=== PATIENT | female | born 2000 | race Caucasian/White ===

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

== ENCOUNTER → 2021-02-14 09:44 | Outpatient (BNVA) | payer MEDICAID, SELFPAY | PROVIDERS: Visit Provider Psychiatry & Neurology Psychiatry | DX: F84.0 Autistic disorder (principal) | CPT/HCPCS: 99214 ==

== ENCOUNTER → 2021-07-08 08:48 | Outpatient (BNVA) | payer MEDICAID, SELFPAY | PROVIDERS: Visit Provider Psychiatry & Neurology Psychiatry | DX: F84.0 Autistic disorder (principal); F32.A Depression, unspecified | CPT/HCPCS: 99214 ==

== ENCOUNTER → 2021-10-02 15:42 | Outpatient (BNVA) | payer MEDICAID, SELFPAY | PROVIDERS: PCP Family Medicine; Visit Provider Family Medicine | DX: E78.5 Hyperlipidemia, unspecified (principal); H61.23 Impacted cerumen, bilateral; J30.2 Other seasonal allergic rhinitis; Z30.09 Encounter for other general counseling and advice on contraception | CPT/HCPCS: 80053; 80061; 84443; 85025 ==

== ENCOUNTER → 2021-10-30 08:38 | Outpatient (BNVA) | payer MEDICAID, SELFPAY | PROVIDERS: PCP Family Medicine; Visit Provider Psychiatry & Neurology Psychiatry | DX: F84.0 Autistic disorder (principal); Z79.899 Other long term (current) drug therapy | CPT/HCPCS: 99214 ==

== ENCOUNTER → 2021-11-20 08:31 | Outpatient (BNVA) | payer MEDICAID, SELFPAY | PROVIDERS: PCP Family Medicine; Visit Provider Psychiatry & Neurology Psychiatry | DX: F84.0 Autistic disorder (principal); F32.A Depression, unspecified; I83.90 Asymptomatic varicose veins of unspecified lower extremity; I83.813 Varicose veins of bilateral lower extremities with pain | CPT/HCPCS: 99202; 99214 ==

== ENCOUNTER 2021-12-25 18:54 | Emergency (ER) | payer MEDICAID, SELFPAY ==
[2021-12-25 19:01] VITALS: BP 153/95; PULSE 108; RESP 18; TEMP 36.7; O2SAT 97; BMI 33.8
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
[2021-12-25] MEDS: ARIPiprazole 10 mg Tablet PO (21:28)
== END 2021-12-25 21:45 | disposition home or self-care (01) ==
PROVIDERS: Emergency Provider Emergency Medicine; PCP Family Medicine
DX: R45.6 Violent behavior (principal)
CPT/HCPCS: 99283; Q3014

== ENCOUNTER → 2021-12-30 16:24 | Outpatient (BNVA) | payer MEDICAID, SELFPAY | PROVIDERS: PCP Family Medicine; Visit Provider Psychiatry & Neurology Psychiatry | DX: F84.0 Autistic disorder (principal); F32.A Depression, unspecified | CPT/HCPCS: 99214 ==

== ENCOUNTER 2022-01-20 13:22 | Outpatient (CLI) | payer MEDICAID, SELFPAY ==
--- NOTE | 2022-01-20 13:30 | USCV_ITS ---
Basilio Patel Age: 21 Gender: F : 2000 Exam Date: 01/20/2022 13:42 Ordering Phys: Jon Fernandez MD (Andy) ([email or web address] – [place], [place]) Technologist: SHIRLENE Exam Location: [facility] [place] Indication: HISTORY: PROCEDURES: FINDINGS: The veins were found to be easily compressible with spontaneous blood flow. Non pulsatile flow pattern. The below-knee segment of the greater saphenous vein on both sides were found to be superficial. Significant venous reflux were noted throughout the greater saphenous vein segments on both sides CONCLUSIONS 1. Significant venous reflux of greater than 500 ms were noted throughout the greater saphenous vein segments on the right side, including the saphenofemoral junction but excluding the below-knee segment. The venous diameter was ranging anywhere from .35 to 0.54 cm. 2. On the left side, significant venous reflux of greater than 500 ms was noted throughout the greater saphenous vein segments including the saphenofemoral junction. The venous segments were measuring anywhere from 0.61 to 0.77 cm in diameter. The below-knee segment and the greater saphenous vein segment distal to the saphenofemoral junction were very superficial. Rest of the venous segments were greater than 1 cm deep 3. Significant venous reflux of greater than 500ms was noted at the proximal segment of the small saphenous vein on the right side. But this segment was a less than 1 cm deep from the surface. There was no significant venous reflux in the small saphenous vein segments on the left side. 4. For the venous dimensions and depth from the surface, please refer to the scanned report Dr Tonia Duffy MD [facility] (Electronically Signed) Final Date: 25 January 2022 09:46 S
== END 2022-01-20 13:23 | disposition home or self-care (01) ==
LOC: RAD 13:23
PROVIDERS: PCP Family Medicine; Visit Provider Thoracic Surgery (Cardiothoracic Vascular Surgery)
DX: I83.90 Asymptomatic varicose veins of unspecified lower extremity (principal); I87.2 Venous insufficiency (chronic) (peripheral)
CPT/HCPCS: 93970

== ENCOUNTER → 2022-09-14 10:52 | Outpatient (BNVA) | payer MEDICAID, SELFPAY | PROVIDERS: PCP Family Medicine; Visit Provider Family Medicine | DX: E78.5 Hyperlipidemia, unspecified (principal); J30.2 Other seasonal allergic rhinitis; Z30.09 Encounter for other general counseling and advice on contraception | CPT/HCPCS: 80053; 80061; 84443; 85025 ==

== ENCOUNTER 2022-10-08 20:51 | Emergency (ER) | payer MEDICAID, SELFPAY ==
[2022-10-08 20:53] VITALS: BP 123/84; PULSE 75; RESP 18; TEMP 36.9; O2SAT 99
--- NOTE | 2022-10-08 20:57 | ED.C_ITS ---
HPI - Psych General: Chief Complaint: Psychiatric Symptoms Stated Complaint: THROWING FIT Time Seen by Provider: 10/08/22 20:55 Source: patient and EMS Mode of arrival: EMS Limitations: no limitations History of Present Illness: 22-year-old female with intellectual delay along with alcohol syndrome mother called EMS tonight because she came angry and was throwing things and was angry patient here is calm cooperative she states she feels improved currently she has no suicidal or homicidal ideations. 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 Other care home (current) drug therapy Psychiatric care Social History Smoking and tobacco status: never smoked Alcohol intake: never Household members: family Marital status: Single Current occupational status: disabled Current gender identity: Female Physical Exam Const: COMMON NORMALS: no acute distress, patient oriented x3 and healthy appearing HENMT: COMMON NORMALS: normocephalic and atraumatic HEAD & SCALP: normocephalic and atraumatic Eye: COMMON NORMALS: Equal, round and reactive pupils present and EOMs intact bilaterally PUPIL: Yes Equal, round and reactive pupils present Neck/C-Spine: COMMON NORMALS: full ROM and supple Chest: COMMONS NORMALS: normal inspection of the chest and normal palpation of entire chest wall Resp: COMMON NORMALS: normal respiratory effort, No retractions, No use of accessory muscles and clear to auscultation bilaterally AUSCULTATION: clear to auscultation bilaterally Cardio: COMMON NORMALS: regular rate, regular rhythm and No murmurs present (Cardio) RATE: regular rate RHYTHM: regular rhythm GI: COMMON NORMALS: Normal to inspection, nondistended, normoactive bowel sounds present, Soft to palpation, non-tender and no masses PALPATION: Yes Soft to palpation Extremity: COMMON NORMALS: normal to inspection and full ROM Neuro: COMMON NORMALS: patient oriented x3, moves all extremities and no focal motor deficits Psych: COMMON NORMALS: mental status grossly normal, Normal thought process present and cooperative THOUGHT PROCESS: Normal thought process present Skin: COMMON NORMALS: no rashes or lesions noted and no wounds GENERAL SKIN EXAM: no rashes or lesions noted Course Vital Signs: Vital signs: Vital Signs Temperature 98.5 F 10/08/22 20:53 Pulse Rate 75 10/08/22 20:53 Respiratory Rate 18 10/08/22 20:53 Blood Pressure 123/84 10/08/22 20:53 Pulse Oximetry 99 10/08/22 20:53 MDM - Psych Medical Decision Making Patient presents here after an anger outburst at home. She has psychiatric history states she is to be on risperidone mother states that she has been increasingly irritable since they have stopped her Risperdal here she has been cool calm cooperative she is not suicidal not homicidal mother would like to take her home she did ask about place her back on Risperdal informed her that it is a call for her psychiatrist to make and call them in the morning she is return if worsening. Discharge Plan Discharge Patient Disposition: Home Clinical Impression: Outbursts of anger Condition: Stable Prescriptions: No Action omega-3 fatty acids 1,000 mg capsule 2,000 mg PO DAILY grape seed extract 50 mg tablet 150 mg PO DAILY Rx Instructions: give with food (meal/snack) cetirizine [Zyrtec] 10 mg tablet 10 mg PO DAILY Qty: 90 1RF norethindrone ac-eth estradiol 1-20 mg-mcg tablet 1 tab PO DAILY Qty: 84 5RF Chaste Tree 225 mg capsule PO fluticasone propionate 50 mcg/actuation spray,suspension See Rx Instructions .ROUTE .COMPLEX Qty: 64 0RF Dose Instruction: instill ONE SPRAY IN EACH NOSTRIL DAILY NEEDED FOR allergy symptoms Rx Instructions: instill ONE SPRAY IN EACH NOSTRIL DAILY NEEDED FOR allergy symptoms hydroxyzine HCl 25 mg tablet 25 mg PO BID PRN (Reason: anxiety or sleep) 30 Days Qty: 60 3RF montelukast 10 mg tablet See Rx Instructions .ROUTE .COMPLEX Qty: 90 0RF Dose Instruction: TAKE ONE TABLET BY MOUTH EVERY DAY Rx Instructions: TAKE ONE TABLET BY MOUTH EVERY DAY aripiprazole 20 mg tablet 10 mg PO BID 30 Days Qty: 30 0RF buspirone 30 mg tablet 30 mg PO BID 30 Days Qty: 60 0RF Discharge Orders: Discharge ED (Routine); Ordered 10/08/22 Ordered By: Holland Gallagher Referrals: Mariann Bearden MD [Primary Care Provider] - 1-3 days Discharge Diet: Advance as tolerated Discharge Activity: Resume usual activity Coding Level of Care Code ED [employer]als for Nahed Malhotra
[2022-10-08] MEDS: LORazepam 1 mg Tablet PO (21:25)
== END 2022-10-08 22:01 | disposition home or self-care (01) ==
PROVIDERS: Emergency Provider Emergency Medicine; PCP Family Medicine
DX: R45.4 Irritability and anger (principal); Q86.0 Fetal alcohol syndrome (dysmorphic)
CPT/HCPCS: 99283

== ENCOUNTER 2022-10-11 17:40 | Emergency (ER) | payer MEDICAID, SELFPAY ==
[2022-10-11 17:45] VITALS: BP 113/78; PULSE 85; RESP 16; TEMP 36.6; O2SAT 100
[2022-10-11 18:40] VITALS: BP 131/86; PULSE 82; RESP 16; O2SAT 99
--- NOTE | 2022-10-11 18:54 | CTR_ITS ---
PROCEDURE INFORMATION: Exam: CT Head Without Contrast Exam date and time: 10/11/2022 7:00 PM Age: 22 years old Clinical indication: Other: Seizure like activity TECHNIQUE: Imaging protocol: Computed tomography of the head without contrast. Radiation optimization: All CT scans at this facility use at least one of these dose optimization techniques: automated exposure control; mA and/or kV adjustment per patient size (includes targeted exams where dose is matched to clinical indication); or iterative reconstruction. REPORTING DATA: Count of CT and Cardiac NM exams in prior 12 months: This patient has received 0 known CTs and 0 known cardiac nuclear medicine studies in the 12 months prior to the current study. COMPARISON: No relevant prior studies available. RADIATION DOSE METRICS: Total DLP (mGy-cm): 989.49 FINDINGS: Brain: Normal. No hemorrhage. Unremarkable white matter. No mass effect. Cerebral ventricles: No ventriculomegaly. Paranasal sinuses: Visualized sinuses are unremarkable. No fluid levels. Mastoid air cells: Visualized mastoid air cells are well aerated. Bones/joints: Unremarkable. No acute fracture. Soft tissues: Unremarkable. CT/CT head wo con* [id number] IMPRESSION: No acute intracranial abnormality.
[2022-10-11 19:24] LABS: Hematocrit 38.8 % (37.0-47.0); Hemoglobin 12.9 g/dL (11.5-15.3); Mean Corpuscular HGB Conc 33.2 g/dL (30.0-36.0); Mean Corpuscular Hemoglobin 29.7 pg (28.0-34.0); Mean Corpuscular Volume 89.4 fl (81-99); Mean Platelet Volume 9.2 fL (7.4-10.4); Platelet Count 318 10^3/cmm (130-400); Red Blood Count 4.34 10^6/uL (4.1-5.3); Red Cell Distribution Width 13.2 % (12.1-15.1); White Blood Count 5.7 10^3/uL (4.0-10.0)
[2022-10-11 19:52] LABS: Alanine Aminotransferase 18 U/L (0-33); Albumin Level 4.2 g/dL (3.5-5.2); Alkaline Phosphatase 67 U/L (35-105); Anion Gap 13.1 (5-19); Aspartate Amino Transferase 17 U/L (0-32); Blood Urea Nitrogen 10 mg/dL (6-20); Calcium 8.9 mg/dL (8.5-10.5); Carbon Dioxide 24 mmol/L (22-29); Chloride 103 mmol/L (98-107); Globulin 3.2 g/dL (1.3-4.6); Glomerular Filtration Rate 90.5 mL/min (90-130); Glucose 84 mg/dL (65-115); Magnesium 1.7 mg/dL (1.7-2.3); Osmolality Calculated 280 mOsm/kg (285-295); Potassium 4.1 mmol/L (3.5-5.1); Prolactin 12.75 ng/mL (4.8-23.3); Sodium 136 mmol/L (136-145); Total Bilirubin 0.3 mg/dL (0.15-1.2); Total Protein 7.4 g/dL (6.6-8.7)
--- NOTE | 2022-10-11 19:53 | W.ED.NEUROSD ---
HPI - Neuro Symptoms/Deficit General: Chief Complaint: Neuro Symptoms/Deficit Stated Complaint: possible seizure Time Seen by Provider: 10/11/22 18:44 History of Present Illness: Patient presents to the ER with complaints of headache, pain behind her eyes, eyes rolling in the back of her head, patient states this happened twice within the last hour. Patient states she is 100% back to normal currently. Patient did not lose consciousness and stayed coherent through the entire process. Onset (ago): hour(s) History of same: No Severity: moderate On Anticoagulants: No Associated symptoms: Reports no associated symptoms; Deny chest pain, headache(s), nausea or vomiting Review of Systems General: Reports: 10 or more systems reviewed and unremarkable except in HPI and below Const: Denies: fever(s) or chills Eyes: Denies: change in vision ENMT: Denies: throat pain or odynophagia Card: Denies: chest pain, palpitations or irregular heart rhythm Resp: Denies: dyspnea, productive cough or non-productive cough GI: Denies: abdominal pain, nausea or vomiting : Denies: flank pain or dysuria Musc: Denies: neck pain or back pain Skin/Breast: Denies: rash or pruritus Neuro: Denies: headache(s), numbness in extremities or weakness in extremities Psych: Denies: anxiety or depression PFSH ED PFSH: Medical History Depression alcohol syndrome Other nursing home (current) drug therapy 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 Psychiatric care Social History Smoking and tobacco status: never smoked Alcohol intake: never Household members: family Marital status: Single Current occupational status: disabled Current gender identity: Female Physical Exam Const: COMMON NORMALS: no acute distress, average body habitus, patient oriented x3, no limitations, healthy appearing, alert and well nourished HENMT: COMMON NORMALS: normocephalic, atraumatic, hearing grossly normal bilaterally, external ears normal, Normal external nose present and moist oral mucous membranes HEAD & SCALP: normocephalic and atraumatic NOSE: Normal external nose present EXTERNAL EAR: Yes external ears normal Eye: COMMON NORMALS: Equal, round and reactive pupils present, EOMs intact bilaterally, conjunctivae normal and no scleral icterus CONJUNCTIVA: Yes conjunctivae normal PUPIL: Yes Equal, round and reactive pupils present Neck/C-Spine: COMMON NORMALS: full ROM, no lymphadenopathy, supple, no meningeal signs, no JVD, Thyroid normal and No carotid bruits THYROID: Thyroid normal Lymph: LYMPHATIC: no lymphadenopathy noted Chest: COMMONS NORMALS: normal inspection of the chest and normal palpation of entire chest wall Resp: COMMON NORMALS: normal respiratory effort, No retractions, No use of accessory muscles and clear to auscultation bilaterally AUSCULTATION: clear to auscultation bilaterally Cardio: COMMON NORMALS: no JVD, regular rate, regular rhythm, S1 normal heart sound present, S2 normal heart sound present, No gallops present (Cardio), No clicks present (Cardio), No murmurs present (Cardio) and No rub (Cardio) RATE: regular rate RHYTHM: regular rhythm HEART SOUNDS: S1 normal heart sound present and S2 normal heart sound present GI: COMMON NORMALS: Normal to inspection, nondistended, normoactive bowel sounds present, Soft to palpation, non-tender, No hepatosplenomegaly present and no masses PALPATION: Yes Soft to palpation and Yes No hepatosplenomegaly present : COMMON NORMALS: Yes no CVA tenderness BLADDER/KIDNEY EXAM: Yes no CVA tenderness Back/Pelvis: COMMON NORMALS: no CVA tenderness and thoracic and lumbar spine normal to inspection Extremity: COMMON NORMALS: normal to inspection Neuro: COMMON NORMALS: patient oriented x3, CN's II-XII intact bilaterally, moves all extremities, no focal motor deficits and no sensory deficits noted SENSORIUM/ORIENTATION: Yes alert MENINGEAL SIGNS: Yes no meningeal signs Psych: COMMON NORMALS: mental status grossly normal, Normal thought process present, cooperative, normal affect, speech normal and activity/motor behavior normal SPEECH: Yes normal speech THOUGHT PROCESS: Normal thought process present Course Vital Signs: Vital signs: Vital Signs Temperature 97.8 F 10/11/22 17:45 Pulse Rate 82 10/11/22 18:40 Respiratory Rate 16 10/11/22 18:40 Blood Pressure 131/86 10/11/22 18:40 Pulse Oximetry 99 10/11/22 18:40 Oxygen Delivery Me thod 10/11/22 18:40 MDM - Neuro Symptoms/Deficit Medical Decision Making Patient presents to the ER with headache and pain behind her eyes. Patient states her eyes did roll back in her head. Patient states that she did not lose consciousness during this episode and has had this happen twice in the last hour. All patient symptoms have resolved except headache upon arrival to the ER. Physical exam was performed as well as review of lab work and CT which are essentially benign. Due to physical exam and findings of lab and CT being benign patient will be discharged home. Differential Diagnosis Unlikely carpal tunnel syndrome, convulsions, delirium, subarachnoid hemorrhage, peripheral neuropathy, cerebrovascular accident, multiple sclerosis or transient cerebral ischemia Lab Data 10/11/22 19:05 10/11/22 19:[address] 10/11/22 18:54 IMPRESSION: No acute intracranial abnormality. Laboratory Results WBC 5.7 10^3/uL (4.0-10.0) 10/11/22 19:05 RBC 4.34 10^6/uL (4.1-5.3) 10/11/22 19:05 Hgb 12.9 g/dL (11.5-15.3) 10/11/22 19:05 Hct 38.8 % (37.0-47.0) 10/11/22 19:05 MCV 89.4 fl (81-99) 10/11/22 19:05 MCH 29.7 pg (28.0-34.0) 10/11/22 19:05 MCHC 33.2 g/dL (30.0-36.0) 10/11/22 19:05 RDW 13.2 % (12.1-15.1) 10/11/22 19:05 Plt Count 318 10^3/cmm (130-400) 10/11/22 19:05 MPV 9.2 fL (7.4-10.4) 10/11/22 19:05 Lymph % (Auto) Not Reportable 10/11/22 19:05 [place] % (Auto) Not Reportable 10/11/22 19:05 Lymph # (Auto) Not Reportable 10/11/22 19:05 [place] # (Auto) Not Reportable 10/11/22 19:05 Total Counted 100 (0-100) 10/11/22 19:05 Atypical Lymphs % 3.0 % (0-5) 10/11/22 19:05 Absolute Neutrophils 2.3 10^3/cmm (1.4-6.5) 10/11/22 19:05 Segmented Neutrophils 40 % 10/11/22 19:05 Abs Segm Neuts (Man) 2.3 10/cmm (1.6-7.1) 10/11/22 19:05 Band Neutrophils 0.0 % 10/11/22 19:05 Abs Band Neuts (Man) 0.0 10^3/cmm (0.0-1.2) 10/11/22 19:05 Absolute Lymphocytes 2.6 10^3/cmm (1.2-3.4) 10/11/22 19:05 Lymphocytes (Manual) 42 % 10/11/22 19:05 Monocytes (Manual) 14.0 % 10/11/22 19:05 Absolute Monocytes 0.8 10^3/cmm (0.1-0.6) H 10/11/22 19:05 Eosinophils (Manual) 1 % 10/11/22 19:05 Absolute Eosinophils 0.0 10^3/cmm (0.0-0.7) 10/11/22 19:05 Basophils (Manual) 0.0 % 10/11/22 19:05 Absolute Basophils 0.0 10^3/cmm (0.0-0.2) 10/11/22 19:05 Toxic Granulation 2+ H 10/11/22 19:05 Platelet Estimate Normal (Normal) 10/11/22 19:05 Tear Drop Cells 1+ 10/11/22 19:05 Sodium 136 mmol/L (136-145) 10/11/22 19:05 Potassium 4.1 mmol/L (3.5-5.1) 10/11/22 19:05 Chloride 103 mmol/L (98-107) 10/11/22 19:05 Carbon Dioxide 24 mmol/L (22-29) 10/11/22 19:05 Anion Gap 13.1 (5-19) 10/11/22 19:05 BUN 10 mg/dL (6-20) 10/11/22 19:05 Creatinine 0.8 mg/dL (0.5-0.9) 10/11/22 19:05 GFR Calculation 90.5 mL/min (90-130) 10/11/22 19:05 Glucose 84 mg/dL (65-115) 10/11/22 19:05 Calculated Osmolality 280 mOsm/kg (285-295) L 10/11/22 19:05 Calcium 8.9 mg/dL (8.5-10.5) 10/11/22 19:05 Magnesium 1.7 mg/dL (1.7-2.3) 10/11/22 19:05 Total Bilirubin 0.3 mg/dL (0.15-1.2) 10/11/22 19:05 AST 17 U/L (0-32) 10/11/22 19:05 ALT 18 U/L (0-33) 10/11/22 19:05 Alkaline Phosphatase 67 U/L (35-105) 10/11/22 19:05 Total Protein 7.4 g/dL (6.6-8.7) 10/11/22 19:05 Albumin 4.2 g/dL (3.5-5.2) 10/11/22 19:05 Globulin 3.2 g/dL (1.3-4.6) 10/11/22 19:05 Prolactin 12.75 ng/mL (4.8-23.3) 10/11/22 19:05 Urine Color Yellow (Yellow) 10/11/22 19:09 Urine Appearance Clear (CLEAR) 10/11/22 19:09 Urine pH 5 (5-7) 10/11/22 19:09 Ur Specific [place] 1.025 (1.005-1.030) 10/11/22 19:09 Urine Protein Neg (Negative) 10/11/22 19:09 Urine Glucose (UA) Norm (Normal) 10/11/22 19:09 Urine Ketones Negative (Negative) 10/11/22 19: Urine Blood Neg (Negative) 10/11/22 19:09 Urine Nitrate Negative (Negative) 10/11/22 19:09 Urine Bilirubin Neg (Negative) 10/11/22 19:09 Urine Urobilinogen Norm mg/dL (Negative) 10/11/22 19:09 Ur Leukocyte Esterase Trace (Negative) H 10/11/22 19:09 Urine RBC None /hpf (0-2) 10/11/22 19:09 Urine WBC 0-4 /hpf (0-5) H 10/11/22 19:09 Ur Squamous Epith Cells 10-15 /hpf (0-5) H 10/11/22 19:09 Amorphous Sediment Not Reportable 10/11/22 19:09 Urine Bacteria 2+ /hpf (NONE) H 10/11/22 19:09 Urine Mucus 1+ /hpf 10/11/22 19:09 Discharge Plan Discharge Patient Disposition: Home Clinical Impression: Headache Qualifiers: Headache type: unspecified Headache chronicity pattern: acute headache Intractability: not intractable Qualified Code(s): R51.9 - Headache, unspecified Condition: Stable Prescriptions: No Action omega-3 fatty acids 1,000 mg capsule 2,000 mg PO DAILY grape seed extract 50 mg tablet 150 mg PO DAILY Rx Instructions: give with food (meal/snack) cetirizine [Zyrtec] 10 mg tablet 10 mg PO DAILY Qty: 90 1RF norethindrone ac-eth estradiol 1-20 mg-mcg tablet 1 tab PO DAILY Qty: 84 5RF Chaste [place] 225 mg capsule PO fluticasone propionate 50 mcg/actuation spray,suspension See Rx Instructions .ROUTE .COMPLEX Qty: 64 0RF Dose Instruction: instill ONE SPRAY IN EACH NOSTRIL DAILY NEEDED FOR allergy symptoms Rx Instructions: instill ONE SPRAY IN EACH NOSTRIL DAILY NEEDED FOR allergy symptoms hydroxyzine HCl 25 mg tablet 25 mg PO BID PRN (Reason: anxiety or sleep) 30 Days Qty: 60 3RF montelukast 10 mg tablet See Rx Instructions .ROUTE .COMPLEX Qty: 90 0RF Dose Instruction: TAKE ONE TABLET BY MOUTH EVERY DAY Rx Instructions: TAKE ONE TABLET BY MOUTH EVERY DAY aripiprazole 20 mg tablet 10 mg PO BID 30 Days Qty: 30 0RF buspirone 30 mg tablet 30 mg PO BID 30 Days Qty: 60 0RF Discharge Orders: Discharge ED (Routine); Ordered 10/11/22 Ordered By: Chester Patiño Referrals: Mariann Bearden MD [Primary Care Provider] - 1 week Patient Instructions: Headache Coding Level of Care Code ED Assistant Professor Of Radiology for Nahed Malhotra
[2022-10-11 19:58] LABS: Urine Appearance Clear (CLEAR); Urine Color Yellow (Yellow)
[2022-10-11 19:59] LABS: Add Urine Microscopic? YES; Bilirubin Urine Neg (Negative); Blood Urine Neg (Negative); Glucose Urine UA Norm (Normal); Ketones Urine Negative (Negative); Leukocyte Esterase Urine Trace (Negative); Nitrate Urine Negative (Negative); Protein Urine Neg (Negative); Specific Gravity, Urine 1.025 (1.005-1.030); Urobilinogen Urine Norm (Negative); pH Urine 5 (5-7)
[2022-10-11 20:04] LABS: Bacteria Urine 2+ /hpf; WBC Urine 0-4 /hpf (0-5)
[2022-10-11 20:05] LABS: Mucus Urine 1+ /hpf
[2022-10-11 20:13] LABS: Absolute Segmented Neutrophil 2.3 10/cmm (1.6-7.1); Segmented Neutrophils 40 %; Total Cells Counted 100 (0-100)
[2022-10-11 20:14] LABS: Eosinophils 1 %; Lymphocytes 42 %; Lymphocytes Absolute 2.6 10^3/cmm (1.2-3.4); Monocytes Absolute 0.8 10^3/cmm (0.1-0.6)
[2022-10-11 20:15] LABS: Absolute Neutrophil 2.3 10^3/cmm (1.4-6.5); Platelet Estimate Normal (Normal); Tear Drop Cells 1+; Toxic Granulation 2+
[2022-10-11 20:52] VITALS: BP 119/77; O2SAT 96
== END 2022-10-11 21:06 | disposition home or self-care (01) ==
PROVIDERS: Emergency Provider Emergency Medicine; PCP Family Medicine
DX: R51.9 Headache, unspecified (principal); Q86.0 Fetal alcohol syndrome (dysmorphic)
CPT/HCPCS: 70450; 80053; 81001; 83735; 84146; 85007; 85025; 99284

== ENCOUNTER → 2022-10-29 14:40 | Outpatient (BNVA) | payer MEDICAID, SELFPAY | PROVIDERS: PCP Family Medicine; Visit Provider Nurse Practitioner Family | DX: J02.9 Acute pharyngitis, unspecified (principal); H10.9 Unspecified conjunctivitis; B96.89 Other specified bacterial agents as the cause of diseases classified elsewhere; J30.2 Other seasonal allergic rhinitis | CPT/HCPCS: 87071; 87880 ==

== ENCOUNTER 2023-01-17 20:43 | Emergency (ER) | payer MEDICAID, SELFPAY ==
[2023-01-17 20:44] VITALS: BP 120/73; PULSE 108; RESP 18; TEMP 36.9; O2SAT 97
[2023-01-17 21:33] LABS: Basophils % 0.2 %; Eosinophils # 0.2 10^3/uL (0.0-0.8); Eosinophils % 1.9 %; Hematocrit 41.5 % (37.0-47.0); Hemoglobin 14.1 g/dL (11.5-15.3); Lymphocytes # 3.1 10^3/uL (0.8-4.8); Lymphocytes % 36.2 %; Mean Corpuscular Hemoglobin 29.6 pg (28.0-34.0); Mean Platelet Volume 9.6 fL (7.4-10.4); Monocytes # 0.8 10^3/uL (0.2-0.9); Monocytes % 9.2 %; Neutrophils # 4.43 10^3/uL (1.8-7.7); Neutrophils % 52.1 %; Nucleated Red Blood Cells % 0 %; Platelet Count 360 10^3/cmm (130-400); Red Blood Count 4.77 10^6/uL (4.1-5.3); Red Cell Distribution Width 13.3 % (12.1-15.1); White Blood Count 8.5 10^3/uL (4.0-10.0)
[2023-01-17 21:40] LABS: Add Urine Microscopic? YES; Bilirubin Urine 1+ (Negative); Blood Urine Neg (Negative); Glucose Urine UA Trace (Normal); Ketones Urine Negative (Negative); Leukocyte Esterase Urine 1+ (Negative); Nitrate Urine Negative (Negative); Protein Urine 3+ (Negative); Urine Appearance Hazy (CLEAR); Urine Color Yellow (Yellow); Urobilinogen Urine 1 mg/dL (Negative); pH Urine 6 (5-7)
[2023-01-17 21:41] LABS: HCG Qualitative Urine. Negative (Negative)
[2023-01-17 21:45] LABS: Bacteria Urine 1+ /hpf; Hyaline Casts Urine 0-4 /lpf; RBC Urine 0-4 /hpf (0-2); Squamous Epithelial Cell Urine 0-4 /hpf (0-5)
[2023-01-17 21:49] LABS: Alanine Aminotransferase 14 U/L (0-33); Albumin Level 4.1 g/dL (3.5-5.2); Alkaline Phosphatase 70 U/L (35-105); Anion Gap 17.4 (5-19); Aspartate Amino Transferase 19 U/L (0-32); Blood Urea Nitrogen 16 mg/dL (6-20); Calcium 9.7 mg/dL (8.5-10.5); Carbon Dioxide 23 mmol/L (22-29); Chloride 107 mmol/L (98-107); Globulin 3.8 g/dL (1.3-4.6); Glucose 89 mg/dL (65-115); Osmolality Calculated 297 mOsm/kg (285-295); Potassium 4.4 mmol/L (3.5-5.1); Sodium 143 mmol/L (136-145); Total Bilirubin 0.2 mg/dL (0.15-1.2); Total Protein 7.9 g/dL (6.6-8.7)
[2023-01-17 21:49] LABS: Amphetamines Screen Urine Negative (Negative); Barbiturates Screen Urine Negative (Negative); Benzodiazepines Screen Urine Positive (Negative); Cocaine Screen Urine Negative (Negative); Opiate Screen Urine Negative (Negative); PCP Screen Urine Negative (Negative); THC Screen Urine Negative (Negative)
[2023-01-17 22:00] LABS: Acetaminophen < 5.0 ug/mL (10-30); Salicylate < 0.3 mg/dL (3-10)
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
[2023-01-17 23:03] VITALS: BP 122/79; PULSE 81; RESP 16; O2SAT 97
== END 2023-01-17 23:07 | disposition home or self-care (01) ==
PROVIDERS: Emergency Provider Family Medicine; PCP Family Medicine
DX: R45.6 Violent behavior (principal); F39 Unspecified mood [affective] disorder
CPT/HCPCS: 80053; 80306; 80307; 81001; 81025; 85025; 99283

== ENCOUNTER → 2023-01-25 09:21 | Outpatient (BNVA) | payer MEDICAID, SELFPAY | PROVIDERS: PCP Family Medicine; Visit Provider Family Medicine | DX: R05.9 Cough, unspecified (principal); H61.20 Impacted cerumen, unspecified ear; J20.9 Acute bronchitis, unspecified | CPT/HCPCS: 87426 ==

== ENCOUNTER → 2024-01-18 14:07 | Outpatient (BNVA) | payer OTHER, SELFPAY | PROVIDERS: PCP Family Medicine; Visit Provider Psychiatry & Neurology Psychiatry | DX: Z79.899 Other long term (current) drug therapy (principal); R46.89 Other symptoms and signs involving appearance and behavior; F33.41 Major depressive disorder, recurrent, in partial remission; F79 Unspecified intellectual disabilities | CPT/HCPCS: 80053; 80061; 83036; 84443; 85025 ==

== ENCOUNTER 2024-03-29 18:24 | Emergency (ER) | payer MEDICAID, SELFPAY ==
[2024-03-29 18:27] VITALS: BP 138/81; PULSE 84; RESP 18; TEMP 36.7; O2SAT 98
--- NOTE | 2024-03-29 18:34 | ED.C_ITS ---
HPI - Psych General: Chief Complaint: Psychiatric Symptoms Stated Complaint: mhe Time Seen by Provider: 03/29/24 18:25 Source: patient and EMS Mode of arrival: EMS Limitations: no limitations History of Present Illness: Patient is a 23-year-old female presents the emergency department by ambulance due to an anger outburst tonight at home. Police were called by mom, and please subsequently called the ambulance to ring the patient to the emergency department after she and her family got into it at the dinner table. When patient asked, she states that she got upset because she did not get to go to [facility]. She states that she is not having any suicidal or homicidal ideations, and never has had anything like this. At this time she states she feels scared because she is upset and her family. She does have a history of alcohol syndrome and is on the autism spectrum. She has no symptoms reported this time, though is noted to be tearful at bedside. Currently awaiting dad to arrive at the emergency department for further history taking. MD complaint: other (Anger outburst) Onset (ago): minute(s) Duration: resolved prior to arrival History of same: Yes Associated psychiatric symptoms: none Associated symptoms: Deny auditory hallucinations, visual hallucinations, homicidal ideation or suicidal ideation Related Data Home Medications Medication Instructions Recorded Confirmed omega-3 fatty acids 1,000 mg 2,000 mg PO DAILY 10/22/20 01/18/24 capsule grape seed extract 50 mg tablet 150 mg PO DAILY 02/14/21 01/18/24 Chaste Tree PO 11/20/21 01/18/24 5-hydroxytryptophan(5HTP) 50 mg-B6 tab PO 02/18/23 01/18/24 4 mg-C 60 mg tablet,delayed release Previous Rx's Medication Instructions Recorded cetirizine 10 mg tablet (Zyrtec) 10 mg PO DAILY #90 tabs 10/02/21 fluticasone propionate 50 See Rx Instructions .Route 04/01/22 mcg/actuation nasal .COMPLEX #64 grams spray,suspension cefdinir 300 mg capsule 300 mg PO BID #20 caps 10/18/23 norethindrone acetate 1 mg-ethinyl 1 tab PO DAILY #84 tabs 12/10/23 estradiol 20 mcg tablet aripiprazole 20 mg tablet 10 mg (1/2 x 20 mg) PO BID 30 days 01/22/24 #30 tabs benztropine 1 mg tablet See Rx Instructions .Route 01/22/24 .COMPLEX #60 tabs buspirone 30 mg tablet 30 mg PO BID anxiety 30 days #60 01/22/24 tabs hydroxyzine HCl 25 mg tablet 25 mg PO BID PRN anxiety or sleep 01/22/24 30 days #60 tabs montelukast 10 mg tablet See Rx Instructions .Route 02/01/24 .COMPLEX #90 tabs lorazepam 0.5 mg tablet 0.5 mg PO DAILY PRN anxiety 30 02/15/24 days #30 tabs Allergies Allergy/AdvReac Type Severity Reaction Status Date / Time adhesive tape Allergy Unknown Unknown Verified 10/18/23 13:38 Review of Systems General: Reports: 10 or more systems reviewed and unremarkable except in HPI and below Const: Denies: fever(s), chills or fatigue Eyes: Denies: change in vision ENMT: Denies: throat pain, ear or mastoid pain or nasal discharge Card: Denies: chest pain, palpitations, swelling of feet/ankles or lightheadedness Resp: Denies: dyspnea, productive cough or wheezing GI: Denies: abdominal pain, nausea, vomiting, diarrhea or constipation : Denies: flank pain, difficulty voiding, dysuria or urinary frequency Musc: Denies: neck pain, back pain or joint pain Skin/Breast: Denies: rash Neuro: Denies: headache(s), numbness in extremities or weakness in extremities Psych: Reports: other (Anger outburst); Denies: visual hallucinations, auditory hallucinations, tactile hallucinations, suicidal ideation or homicidal ideation [facility] ED PFSH: Medical History Intellectual disability Aggressive behavior Psychiatric care Depression alcohol syndrome Other rn long term care (current) drug therapy Other halfway (current) drug therapy Social History Smoking and tobacco/nicotine status: never used tobacco/nicotine Alcohol intake: never Substance/Drug Use: never Household members: family Marital status: Single Current occupational status: disabled Current gender identity: Female Physical Exam Const: COMMON NORMALS: no acute distress, patient oriented x3 and no limitations GENERAL APPEARANCE: cooperative, comfortable and well developed ORIENTATION/CONSCIOUSNESS: Yes awake, Yes oriented to person, Yes oriented to place and Yes oriented to time HENMT: COMMON NORMALS: normocephalic, atraumatic and hearing grossly normal bilaterally HEAD & SCALP: normocephalic and atraumatic Eye: COMMON NORMALS: Equal, round and reactive pupils present, EOMs intact bilaterally and conjunctivae normal CONJUNCTIVA: Yes conjunctivae normal PUPIL: Yes Equal, round and reactive pupils present Neck/C-Spine: COMMON NORMALS: full ROM, supple and no JVD Resp: COMMON NORMALS: normal respiratory effort, No retractions, No use of accessory muscles and clear to auscultation bilaterally AUSCULTATION: clear to auscultation bilaterally Cardio: COMMON NORMALS: no JVD, regular rate, regular rhythm, No clicks present (Cardio), No murmurs present (Cardio) and No rub (Cardio) RATE: regular rate RHYTHM: regular rhythm GI: COMMON NORMALS: Normal to inspection, nondistended, normoactive bowel sounds present, Soft to palpation and non-tender AUSCULTATION: Yes normoactive bowel sounds PALPATION: Yes Soft to palpation RECTAL EXAM: deferred Extremity: COMMON NORMALS: normal to inspection, full ROM and capillary refill normal Neuro: COMMON NORMALS: patient oriented x3, moves all extremities, no focal motor deficits and no sensory deficits noted SENSORIUM/ORIENTATION: Yes oriented to person, Yes oriented to place and Yes oriented to time Psych: COMMON NORMALS: mental status grossly normal and Normal thought process present ATTITUDE: Yes calm ACTIVITY/MOTOR BEHAVIOR: Yes Avoids eye contact (attititude/behavior) SPEECH: Yes incoherent MOOD & AFFECT: Yes anxious and Yes tearful THOUGHT PROCESS: Normal thought process present THOUGHT CONTENT: Yes Normal thought content present ATTENTION/CONCENTRATION: Yes attention grossly intact MEMORY/COGNITION: Yes memory grossly intact Skin: COMMON NORMALS: no rashes or lesions noted GENERAL SKIN EXAM: no rashes or lesions noted Course Vital Signs: Vital signs: Vital Signs Temperature 98.1 F 03/29/24 18:27 Pulse Rate 84 03/29/24 18:27 Respiratory Rate 18 03/29/24 18:27 Blood Pressure 138/81 03/29/24 18:27 Pulse Oximetry 98 03/29/24 18:27 Oxygen Delivery Me thod Room Air 03/29/24 18:27 MDM - Psych Medical Decision Making Patient arrived at the emergency department by ambulance after police had called due to outburst at home. Patient has history of alcohol syndrome and is on the autism spectrum, has history of similar in the past. Patient told me she was not suicidal or homicidal and states that she just got angry tonight and is currently anxious and tearful. States she is scared to go home because she is afraid of what her parents may think. She denied to me any history of previous suicide attempts or ideations. Dad arrived later and informed me that he feels safe to take the patient home and that this has happened before. She has outpatient psychiatry as well as a counselor that she sees regularly, and patient is able to be directly supervised at home. Thoroughly encouraged dad to bring patient back with any ideations as mentioned or other concerning symptoms, or if generally he feels unsafe with the patient at home. Due to patient having outpatient resources, no suicidal or homicidal ideations, drug use, or hallucinations, will discharge home with strict observation. Discussed patient's case with Dr. Gallagher who agrees. No radiology studies performed this visit Discharge Plan Discharge Patient Disposition: Home Clinical Impression: Outbursts of anger Condition: Stable Prescriptions: No Action omega-3 fatty acids 1,000 mg capsule 2,000 mg PO DAILY grape seed extract 50 mg tablet 150 mg PO DAILY Rx Instructions: give with food (meal/snack) cetirizine [Zyrtec] 10 mg tablet 10 mg PO DAILY Qty: 90 1RF cefdinir 300 mg capsule 300 mg PO BID Qty: 20 0RF Chaste Tree 225 mg capsule PO 5-hydroxytryptophan(5HTP)-B6-C 50-4-60 mg tablet,delayed release (DR/EC) PO aripiprazole 20 mg tablet 10 mg PO BID 30 Days Qty: 30 4RF benztropine 1 mg tablet See Rx Instructions .ROUTE .COMPLEX Qty: 60 3RF Dose Instruction: TAKE ONE TABLET BY MOUTH TWICE DAILY FOR 30 days Rx Instructions: TAKE ONE TABLET BY MOUTH TWICE DAILY FOR 30 days buspirone 30 mg tablet 30 mg PO BID 30 Days Qty: 60 4RF hydroxyzine HCl 25 mg tablet 25 mg PO BID PRN (Reason: anxiety or sleep) 30 Days Qty: 60 4RF fluticasone propionate 50 mcg/actuation spray,suspension See Rx Instructions .ROUTE .COMPLEX Qty: 64 0RF Dose Instruction: instill ONE SPRAY IN EACH NOSTRIL DAILY NEEDED FOR allergy symptoms Rx Instructions: instill ONE SPRAY IN EACH NOSTRIL DAILY NEEDED FOR allergy symptoms norethindrone ac-eth estradiol 1-20 mg-mcg tablet 1 tab PO DAILY Qty: 84 5RF montelukast 10 mg tablet See Rx Instructions .ROUTE .COMPLEX Qty: 90 0RF Dose Instruction: TAKE ONE TABLET BY MOUTH DAILY Rx Instructions: TAKE ONE TABLET BY MOUTH DAILY lorazepam 0.5 mg tablet 0.5 mg PO DAILY PRN (Reason: anxiety) 30 Days Qty: 30 4RF Discharge Orders: Discharge ED (Routine); Ordered 03/29/24 Ordered By: Morales Li Referrals: Mariann Bearden MD [Primary Care Provider] - Discharge Diet: Usual diet Discharge Activity: Increase activity as tolerated Patient Instructions: Pain Management Activity Restrictions/Additional Instructions: Please continue follow-ups with outpatient psychiatry and behavioral health as discussed. Return immediately with any thoughts of suicide or homicide for prompt reevaluation. Coding Level of Care Code ED Electric Crane Operator for Nahed Malhotra
== END 2024-03-29 20:28 | disposition home or self-care (01) ==
PROVIDERS: Emergency Provider Physician Assistant; PCP Family Medicine
DX: R45.4 Irritability and anger (principal); Q86.0 Fetal alcohol syndrome (dysmorphic)
CPT/HCPCS: 99283

== ENCOUNTER 2024-09-27 12:02 | Inpatient (IN) | payer MEDICAID, SELFPAY ==
[2024-09-27 12:07] VITALS: BP 118/71; PULSE 89; RESP 16; TEMP 37.3; O2SAT 99; BMI 29.2
--- NOTE | 2024-09-27 12:55 | W.ED.PSYCHS ---
HPI - Psych General: Chief Complaint: Psychiatric Symptoms Stated Complaint: SI Time Seen by Provider: 09/27/24 12:02 Source: patient Mode of arrival: ambulatory Limitations: no limitations History of Present Illness: 24-year-old female who has a history of alcohol syndrome she had a history of anger outburst in the past states she had gone into with her family and made a statement to them she did not know if she want to live or . She is now calm down she denies being suicidal or homicidal currently. Sent here for psychiatric evaluation has no other complaints Associated symptoms: Reports depression Related Data Home Medications ?Medication ?Instructions ?Recorded ?Confirmed omega-3 fatty acids 1,000 mg 2,000 mg PO DAILY 10/22/20 09/27/24 capsule 5-hydroxytryptophan(5HTP) 50 mg-B6 1 tab PO DAILY 02/18/23 09/27/24 4 mg-C 60 mg tablet,delayed release aripiprazole 20 mg tablet 20 mg PO BID 09/27/24 09/27/24 benztropine 1 mg tablet 1 mg PO BID 09/27/24 09/27/24 fluticasone propionate 50 1 spray intranasal DAILY PRN 09/27/24 09/27/24 mcg/actuation nasal Allergy Symptoms spray,suspension grape seed extract 150 mg 150 mg PO DAILY 09/27/24 09/27/24 tablet,extended release montelukast 10 mg tablet 10 mg PO DAILY allergies 09/27/24 09/27/24 Previous Rx's ?Medication ?Instructions ?Recorded cetirizine 10 mg tablet (Zyrtec) 10 mg PO DAILY #90 tabs 10/02/21 norethindrone acetate 1 mg-ethinyl 1 tab PO DAILY #84 tabs 12/10/23 estradiol 20 mcg tablet hydroxyzine HCl 25 mg tablet 25 mg PO BID PRN anxiety or sleep 07/07/24 30 days #60 tabs lorazepam 0.5 mg tablet 0.5 mg PO DAILY PRN anxiety 30 07/07/24 days #30 tabs buspirone 30 mg tablet 30 mg PO BID anxiety 30 days #60 09/05/24 tabs olanzapine 10 mg tablet 10 mg PO DAILY PRN anxiety or 09/22/24 aggression 30 days #30 tabs Allergies Allergy/AdvReac Type Severity Reaction Status Date / Time ziprasidone (From [facility]) Allergy Severe eyes roll Verified 05/24/24 13:26 back in her head adhesive tape Allergy Unknown Unknown Verified 05/24/24 13:26 Review of Systems Const: Denies: fever(s), chills, body aches or change in appetite ENMT: Denies: throat pain or dental pain Card: Denies: chest pain Resp: Denies: dyspnea GI: Denies: abdominal pain, nausea, vomiting or diarrhea Musc: Denies: neck pain or back pain Skin/Breast: Denies: rash Neuro: Denies: headache(s) Psych: Reports: depression PFSH ED PFSH: Medical History Intellectual disability Aggressive behavior Psychiatric care Depression alcohol syndrome Other halfway (current) drug therapy Other halfway (current) drug therapy Social History Smoking and tobacco/nicotine status: never used tobacco/nicotine Alcohol intake: never Substance/Drug Use: never Household members: family Marital status: Single Current occupational status: disabled Current gender identity: Female Physical Exam Const: COMMON NORMALS: no acute distress, patient oriented x3 and healthy appearing HENMT: COMMON NORMALS: normocephalic and atraumatic HEAD & SCALP: normocephalic and atraumatic Eye: COMMON NORMALS: conjunctivae normal CONJUNCTIVA: Yes conjunctivae normal Neck/C-Spine: COMMON NORMALS: full ROM and supple Chest: COMMONS NORMALS: normal inspection of the chest Resp: COMMON NORMALS: normal respiratory effort Cardio: COMMON NORMALS: regular rate RATE: regular rate Extremity: COMMON NORMALS: normal to inspection and full ROM Neuro: COMMON NORMALS: patient oriented x3, moves all extremities and no focal motor deficits Psych: COMMON NORMALS: mental status grossly normal, Normal thought process present and cooperative THOUGHT PROCESS: Normal thought process present Skin: COMMON NORMALS: no rashes or lesions noted and no wounds GENERAL SKIN EXAM: no rashes or lesions noted Course Vital Signs: Vital signs: Vital Signs Temperature 99.1 F 09/27/24 12:07 Pulse Rate 89 09/27/24 12:07 Respiratory Rate 16 09/27/24 12:07 Blood Pressure 118/71 09/27/24 12:07 Pulse Oximetry 99 09/27/24 12:07 Oxygen Delivery Me thod Room Air 09/27/24 12:07 [facility] - Psych Medical Decision Making Patient presents here after having an outburst of anger with her family should also commit a threat to hurt herself she is evaluated by Dr. Bailey and will admit the psych murcia at this time. Medical Records I reviewed the patient's medical records. Lab Data I reviewed the patient's lab results. 09/27/24 12:52 09/27/24 12:52 Laboratory Results WBC 8.52 10^3/uL (3.29-11.43) 09/27/24 12:52 RBC 4.33 10^6/uL (3.85-5.65) 09/27/24 12:52 Hgb 13.00 g/dL (11.27-16.99) 09/27/24 12:52 Hct 39.7 % (36-47) 09/27/24 12:52 MCV 91.7 fl (85-98) 09/27/24 12:52 MCH 30.0 pg (27-33) 09/27/24 12:52 MCHC 32.7 g/dL (30-55) 09/27/24 12:52 RDW 13.3 % (12.1-15.1) 09/27/24 12:52 Plt Count 287 10^3/cmm (157-399) 09/27/24 12:52 MPV 10.0 fL (7.4-10.4) 09/27/24 12:52 Neut % (Auto) 68.9 % 09/27/24 12:52 Lymph % (Auto) 24.2 % 09/27/24 12:52 Catron % (Auto) 5.2 % 09/27/24 12:52 Eos % (Auto) 1.1 % 09/27/24 12:52 Baso % (Auto) 0.4 % 09/27/24 12:52 Neut # (Auto) 5.88 10^3/uL (1.8-7.7) 09/27/24 12:52 Lymph # (Auto) 2.1 10^3/uL (0.8-4.8) 09/27/24 12:52 Catron # (Auto) 0.4 10^3/uL (0.2-0.9) 09/27/24 12:52 Eos # (Auto) 0.1 10^3/uL (0.0-0.8) 09/27/24 12:52 Baso # (Auto) 0.0 10^3/uL (0.0-0.1) 09/27/24 12:52 Nucleated RBC % (auto) 0 % 09/27/24 12:52 Nucleated RBCs # 0.0 /100WBC 09/27/24 12:52 Sodium 141 mmol/L (136-145) 09/27/24 12:52 Potassium 4.5 mmol/L (3.5-5.1) 09/27/24 12:52 Chloride 107 mmol/L (98-107) 09/27/24 12:52 Carbon Dioxide 22 mmol/L (22-29) 09/27/24 12:52 Anion Gap 16.5 (5-19) 09/27/24 12:52 BUN 20 mg/dL (6-20) 09/27/24 12:52 Creatinine 0.9 mg/dL (0.5-0.9) 09/27/24 12:52 GFR Calculation 77.6 mL/min (90-130) L 09/27/24 12:52 Glucose 109 mg/dL (65-115) 09/27/24 12:52 Calculated Osmolality 295 mOsm/kg (285-295) 09/27/24 12:52 Calcium 9.3 mg/dL (8.5-10.5) 09/27/24 12:52 Total Bilirubin 0.2 mg/dL (0.15-1.2) 09/27/24 12:52 AST 13 U/L (0-32) 09/27/24 12:52 ALT 15 U/L (0-33) 09/27/24 12:52 Alkaline Phosphatase 54 U/L (35-105) 09/27/24 12:52 Total Protein 7.3 g/dL (6.6-8.7) 09/27/24 12:52 Albumin 4.0 g/dL (3.5-5.2) 09/27/24 12:52 Globulin 3.3 g/dL (1.3-4.6) 09/27/24 12:52 HCG, Qual Negative (Negative) 09/27/24 12:49 Salicylates < 0.3 mg/dL (3-10) L 09/27/24 12:52 Urine Opiates Screen Negative ng/mL (Negative) 09/27/24 12:49 Acetaminophen < 5.0 ug/mL (10-30) L 09/27/24 12:52 Ur Barbiturates Screen Negative ng/mL (Negative) 09/27/24 12:49 Ur Phencyclidine Scrn Negative ng/mL (Negative) 09/27/24 12:49 Ur Amphetamines Screen Negative ng/mL (Negative) 09/27/24 12:49 U Benzodiazepines Scrn Positive ng/mL (Negative) H 09/27/24 12:49 Urine Cocaine Screen Negative ng/mL (Negative) 09/27/24 12:49 U Marijuana (THC) Screen Negative ng/mL (Negative) 09/27/24 12:49 Ethyl Alcohol < 10 mg/dL (0-10) 09/27/24 12:52 All radiology interpretation(s) finalized by discharge Discharge Plan Discharge Patient Disposition: Admitted As Inpatient Clinical Impression: Outbursts of anger, Suicidal ideation Condition: Stable Prescriptions: No Action omega-3 fatty acids 1,000 mg capsule 2,000 mg PO DAILY cetirizine [Zyrtec] 10 mg tablet 10 mg PO DAILY Qty: 90 1RF 5-hydroxytryptophan(5HTP)-B6-C 50-4-60 mg tablet,delayed release (DR/EC) 1 tab PO DAILY norethindrone ac-eth estradiol 1-20 mg-mcg tablet 1 tab PO DAILY Qty: 84 5RF hydroxyzine HCl 25 mg tablet 25 mg PO BID PRN (Reason: anxiety or sleep) 30 Days Qty: 60 4RF lorazepam 0.5 mg tablet 0.5 mg PO DAILY PRN (Reason: anxiety) 30 Days Qty: 30 4RF buspirone 30 mg tablet 30 mg PO BID 30 Days Qty: 60 4RF olanzapine 10 mg tablet 10 mg PO DAILY PRN (Reason: anxiety or aggression) 30 Days Qty: 30 3RF grape seed extract 150 mg Tablet Extended Release 150 mg PO DAILY benztropine 1 mg tablet 1 mg PO BID montelukast 10 mg tablet 10 mg PO DAILY fluticasone propionate 50 mcg/actuation spray,suspension 1 spray intranasal DAILY PRN (Reason: Allergy Symptoms) aripiprazole 20 mg tablet 20 mg PO BID Referrals: Mariann Bearden MD [Primary Care Provider] - Print Language: Syrian Coding Level of Care Code ED Wastewater Engineer for Chg Fwkevin
[2024-09-27 12:57] LABS: Basophils % 0.4 %; Eosinophils # 0.1 10^3/uL (0.0-0.8); Eosinophils % 1.1 %; Hematocrit 39.7 % (36-47); Lymphocytes # 2.1 10^3/uL (0.8-4.8); Lymphocytes % 24.2 %; Mean Corpuscular HGB Conc 32.7 g/dL (30-55); Mean Corpuscular Volume 91.7 fl (85-98); Monocytes # 0.4 10^3/uL (0.2-0.9); Monocytes % 5.2 %; Neutrophils # 5.88 10^3/uL (1.8-7.7); Neutrophils % 68.9 %; Nucleated Red Blood Cells % 0 %; Platelet Count 287 10^3/cmm (157-399); Red Blood Count 4.33 10^6/uL (3.85-5.65); Red Cell Distribution Width 13.3 % (12.1-15.1); White Blood Count 8.52 10^3/uL (3.29-11.43)
[2024-09-27 13:00] LABS: HCG Qualitative Urine. Negative (Negative)
[2024-09-27 13:04] LABS: Amphetamines Screen Urine Negative (Negative); Barbiturates Screen Urine Negative (Negative); Benzodiazepines Screen Urine Positive (Negative); Cocaine Screen Urine Negative (Negative); Opiate Screen Urine Negative (Negative); PCP Screen Urine Negative (Negative); THC Screen Urine Negative (Negative)
[2024-09-27 13:24] LABS: Alanine Aminotransferase 15 U/L (0-33); Alkaline Phosphatase 54 U/L (35-105); Anion Gap 16.5 (5-19); Aspartate Amino Transferase 13 U/L (0-32); Blood Urea Nitrogen 20 mg/dL (6-20); Calcium 9.3 mg/dL (8.5-10.5); Carbon Dioxide 22 mmol/L (22-29); Chloride 107 mmol/L (98-107); Creatinine Clr Calc Pharmacy 90.6867; Globulin 3.3 g/dL (1.3-4.6); Glomerular Filtration Rate 77.6 mL/min (90-130); Glucose 109 mg/dL (65-115); Osmolality Calculated 295 mOsm/kg (285-295); Potassium 4.5 mmol/L (3.5-5.1); Sodium 141 mmol/L (136-145); Total Bilirubin 0.2 mg/dL (0.15-1.2); Total Protein 7.3 g/dL (6.6-8.7)
[2024-09-27 13:25] LABS: Acetaminophen < 5.0 ug/mL (10-30); Alcohol Level < 10 mg/dL (0-10); Salicylate < 0.3 mg/dL (3-10)
--- NOTE | 2024-09-27 15:27 | PC.NURSE ---
96 hour hold rights read and reviewed with patient. Patient verbalized understandings. Copy of rights given to patient.
[2024-09-27 16:51] VITALS: BP 116/70; PULSE 79; O2SAT 99
[2024-09-27 17:07] VITALS: BP 128/76; PULSE 98; RESP 18; TEMP 36.5; O2SAT 98
[2024-09-27 20:00] VITALS: BP 146/87; PULSE 93; RESP 16; TEMP 36.6; O2SAT 99
[2024-09-27] MEDS: BuSPIRONE 10 mg Tablet 30 MG PO (20:51)
[2024-09-27] MEDS: benztropine 1 mg Tablet PO (20:51)
[2024-09-28 06:00] VITALS: BP 117/76; PULSE 84; RESP 16; TEMP 36.4; O2SAT 100
[2024-09-28] MEDS: omega-3 fatty acids 1,000 mg Capsule 2000 MG PO (08:17)
[2024-09-28] MEDS: benztropine 1 mg Tablet PO ×2 (08:17→18:08)
[2024-09-28] MEDS: montelukast sodium 10 mg Tablet PO (08:17)
[2024-09-28] MEDS: BuSPIRONE 10 mg Tablet 30 MG PO ×2 (08:17→18:07)
[2024-09-28] MEDS: ARIPiprazole 10 mg Tablet 20 MG PO ×2 (08:17→18:08)
[2024-09-28] MEDS: cetirizine 10 mg Tablet PO (08:17)
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
[2024-09-28 14:00] VITALS: BP 120/80; PULSE 71; RESP 16; TEMP 37.4; O2SAT 99
[2024-09-28 19:53] VITALS: BP 100/70; PULSE 84; RESP 16; TEMP 36.8; O2SAT 99
[2024-09-28] MEDS: hyDROXYzine 25 mg Capsule PO (21:27)
[2024-09-28] MEDS: trazodone 50 mg Tablet PO (21:27)
[2024-09-29 06:00] VITALS: BP 112/76; PULSE 71; RESP 18; O2SAT 98
[2024-09-29] MEDS: omega-3 fatty acids 1,000 mg Capsule 2000 MG PO (08:36)
[2024-09-29] MEDS: BuSPIRONE 10 mg Tablet 30 MG PO ×2 (08:36→17:21)
[2024-09-29] MEDS: ARIPiprazole 10 mg Tablet 20 MG PO ×2 (08:36→17:21)
[2024-09-29] MEDS: cetirizine 10 mg Tablet PO (08:37)
[2024-09-29] MEDS: montelukast sodium 10 mg Tablet PO (08:37)
[2024-09-29] MEDS: benztropine 1 mg Tablet PO ×2 (08:37→17:21)
[2024-09-29 14:00] VITALS: BP 122/65; PULSE 81; RESP 16; TEMP 36.5; O2SAT 100
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
[2024-09-29 20:35] VITALS: BP 119/75; PULSE 83; RESP 19; O2SAT 95
[2024-09-29] MEDS: trazodone 50 mg Tablet PO (21:30)
[2024-09-29] MEDS: hyDROXYzine 25 mg Capsule PO (21:30)
[2024-09-30 05:19] VITALS: BP 106/65; PULSE 82; RESP 18; TEMP 36.3; O2SAT 94
[2024-09-30] MEDS: omega-3 fatty acids 1,000 mg Capsule 2000 MG PO (08:29)
[2024-09-30] MEDS: benztropine 1 mg Tablet PO ×2 (08:29→17:45)
[2024-09-30] MEDS: BuSPIRONE 10 mg Tablet 30 MG PO ×2 (08:29→17:45)
[2024-09-30] MEDS: ARIPiprazole 10 mg Tablet 20 MG PO ×2 (08:29→17:45)
[2024-09-30] MEDS: cetirizine 10 mg Tablet PO (08:29)
[2024-09-30] MEDS: montelukast sodium 10 mg Tablet PO (08:29)
[2024-09-30 08:50] VITALS: BP 106/65; PULSE 82; RESP 18; TEMP 36.3; O2SAT 94
--- NOTE | 2024-09-30 10:56 | PC.NURSE ---
2nd attempt in making phone contact with patients
--- NOTE | 2024-09-30 10:59 | PC.NURSE ---
father called stating no one is at home today they are in [place]. he stated that they will call when leaving their home tomorrow to come pick her up at the unit.
[2024-09-30 11:02] LABS: Glucose Point of Care 50 mg/dL (70-110)
[2024-09-30 14:00] VITALS: BP 121/73; PULSE 68; RESP 16; TEMP 36.7; O2SAT 96
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
[2024-09-30 16:44] LABS: Glucose Point of Care 232 mg/dL (70-110)
--- NOTE | 2024-09-30 19:12 | PC.NURSE ---
Blood glucose results obtained at 1100 and 1643 were entered in error. Patient is not a diabetic patient. Patient's blood glucose was not checked by staff.
[2024-09-30 20:34] VITALS: BP 116/64; PULSE 74; RESP 18; TEMP 36.9; O2SAT 99
[2024-09-30] MEDS: trazodone 50 mg Tablet PO (20:37)
[2024-09-30] MEDS: hyDROXYzine 25 mg Capsule PO (20:37)
[2024-10-01 06:00] VITALS: BP 103/70; PULSE 61; RESP 18; O2SAT 96
[2024-10-01] MEDS: omega-3 fatty acids 1,000 mg Capsule 2000 MG PO (07:59)
[2024-10-01] MEDS: BuSPIRONE 10 mg Tablet 30 MG PO (07:59)
[2024-10-01] MEDS: benztropine 1 mg Tablet PO (07:59)
[2024-10-01] MEDS: ARIPiprazole 10 mg Tablet 20 MG PO (07:59)
[2024-10-01] MEDS: cetirizine 10 mg Tablet PO (07:59)
[2024-10-01] MEDS: montelukast sodium 10 mg Tablet PO (07:59)
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
== END 2024-10-01 09:09 | disposition home or self-care (01) | DRG 883 ==
LOC: ER 14:44 → NP 16:44
PROVIDERS: Admitting Provider Psychiatry & Neurology Psychiatry; Emergency Provider Emergency Medicine; PCP Family Medicine; Visit Provider Psychiatry & Neurology Psychiatry
DX: F63.81 Intermittent explosive disorder (principal); R45.851 Suicidal ideations; F70 Mild intellectual disabilities; Q86.0 Fetal alcohol syndrome (dysmorphic); F84.0 Autistic disorder; F33.41 Major depressive disorder, recurrent, in partial remission; F43.10 Post-traumatic stress disorder, unspecified
CPT/HCPCS: 36415; 36416; 80053; 80306; 80307; 81025; 82962; 85025; 97150; 97165; 99285; J9999

== ENCOUNTER → 2024-12-28 15:32 | Outpatient (BNVA) | payer MEDICAID, SELFPAY | PROVIDERS: PCP Family Medicine; Visit Provider Nurse Practitioner Family | DX: Z30.9 Encounter for contraceptive management, unspecified (principal) | CPT/HCPCS: 81025 ==